=== PATIENT | female | born 1940 | race Two or more races ===

== ENCOUNTER 2018-12-03 07:35 | Outpatient (CLI) | payer OTHER | END 2018-12-03 07:43 | disposition home or self-care (01) | LOC: SONOGRAMA 07:35 | DX: E04.2 Nontoxic multinodular goiter (principal) ==

== ENCOUNTER 2019-03-07 11:48 | Outpatient (CLI) | payer OTHER | END 2019-03-07 12:20 | disposition home or self-care (01) | LOC: MAMO-SONO 11:48 | DX: Z12.31 Encounter for screening mammogram for malignant neoplasm of breast (principal); Z87.898 Personal history of other specified conditions; Z85.3 Personal history of malignant neoplasm of breast ==

== ENCOUNTER 2020-05-03 10:12 | Outpatient (CLI) | payer OTHER | END 2020-05-03 10:32 | disposition home or self-care (01) | LOC: MAMO-SONO 10:12 | DX: C50.411 Malignant neoplasm of upper-outer quadrant of right female breast (principal) ==

== ENCOUNTER → 2021-06-07 | Outpatient (CLI) | payer OTHER | END | disposition home or self-care (01) | LOC: MAMO-SONO 07:52 | DX: R92.1 Mammographic calcification found on diagnostic imaging of breast (principal); Z12.31 Encounter for screening mammogram for malignant neoplasm of breast ==

== ENCOUNTER 2022-08-04 15:14 | Emergency (ER) | payer OTHER ==
[~2022-08-04] VITALS: Ht 154.9 cm; Wt 54.4 kg
[2022-08-04] MEDS ORDERED: SYNTHROID50 MCG PO (15:32)
[2022-08-04] MEDS ORDERED: ANASTROZOLE1 MG PO (15:32)
[2022-08-04] MEDS ORDERED: COZAAR25 MG PO (15:32)
[2022-08-04] MEDS ORDERED: TENORMIN25 MG (15:33)
[2022-08-04] MEDS ORDERED: SIMVASTATIN5 MG PO (15:33)
[2022-08-04] MEDS ORDERED: NAMENDA1 EACH PO (15:33)
[2022-08-04] MEDS ORDERED: EXELON1 EACH TD (15:34)
[2022-08-04] MEDS ORDERED: PROPAFENONE HC150 MG PO (15:34)
== END 2022-08-04 17:10 | disposition home or self-care (01) ==
LOC: ER 15:14
DX: M79.662 Pain in left lower leg (principal); M79.661 Pain in right lower leg; E03.9 Hypothyroidism, unspecified; F03.90 Unspecified dementia, unspecified severity, without behavioral disturbance, psychotic disturbance, mood disturbance, and anxiety; Z88.8 Allergy status to other drugs, medicaments and biological substances; Z85.3 Personal history of malignant neoplasm of breast; Z85.41 Personal history of malignant neoplasm of cervix uteri; Z90.10 Acquired absence of unspecified breast and nipple

== ENCOUNTER → 2025-01-26 | Emergency (ER) | payer OTHER ==
[~2025-01-26] VITALS: Ht 162.6 cm; Wt 63.5 kg
[~2025-01-26] MED LIST: ANASTROZOLE1 MG PO; COZAAR25 MG PO; EXELON1 EACH TD; NAMENDA1 EACH PO; PROPAFENONE HC150 MG PO; SIMVASTATIN5 MG PO; SYNTHROID50 MCG PO; TENORMIN25 MG
[2025-01-27 01:16] LABS: BASO % 0.7 % (0.1-1.2); EOS % 2.4 % (0.7-7.0); HEMATOCRIT 39.5 % (34.1-44.9); HEMOGLOBIN 13.1 g/dL (11.2-15.7); LYMPH # 1.89 (1.18-3.74); LYMPH % 22.2 % (19.3-53.1); MEAN CORPUSCULAR HEMOGLOBIN 31.9 pg (25.6-32.2); MONO % 10.6 % (4.7-12.5); NEUT # 5.43 (1.56-6.13); NEUT % 63.9 % (34.0-71.1); PLATELET COUNT 163 K/uL (163-369); RED BLOOD COUNT 4.11 M/uL (3.93-5.22); RED CELL DISTRIBUTION WIDTH 12.7 % (11.6-14.4)
[2025-01-27 01:33] LABS: INR 1.15; PARTIAL THROMBOPLASTIN TIME 28.2 SECONDS (22.0-34.0); PROTHROMBIN TIME 12.4 SECONDS (9.0-11.5)
[2025-01-27 01:37] LABS: ALBUMIN 4.3 gm/dL (3.4-5.0); BILIRUBIN TOTAL 0.38 mg/dL (0.3-1.2); CALCIUM 9.7 mg/dL (8.5-10.1); CREATININE SERUM 0.94 mg/dL (0.55-1.02); GFR 57.01; GLOBULINA 3.8 G/DL (2.4-3.5); POTASSIUM 4.24 mEq/L (3.5-5.1); TOTAL PROTEIN 8.1 gm/dL (6.4-8.2)
== END | disposition left against medical advice (07) ==
LOC: ER 20:18
PROVIDERS: General Practice
DX: S00.83XA Contusion of other part of head, initial encounter (principal); W19.XXXA Unspecified fall, initial encounter; Y93.89 Activity, other specified; Y92.89 Other specified places as the place of occurrence of the external cause; Y99.8 Other external cause status; I10 Essential (primary) hypertension; Z88.8 Allergy status to other drugs, medicaments and biological substances